=== PATIENT | male | born 1975 | race Caucasian/White ===

== ENCOUNTER 2019-01-30 19:14 | Emergency (ER) | payer MEDICAID, OTHER ==
[~2019-01-30] VITALS: Ht 177.8 cm; Wt 101.7 kg
--- NOTE | 2019-01-30 19:29 | NUR ---
last dose of ibuprofen at 1800
[2019-01-30] MEDS ORDERED: ACETAMINOPHEN 500 MG TABLET ONE (20:28)
[2019-01-30] MEDS ORDERED: ACETAMINOPHEN 500 MG TABLET PO ONE (20:30)
[2019-01-30 20:40] LABS: RAPID INFLUENZA A Negative (Negative); RAPID INFLUENZA B Negative (Negative)
[2019-01-30 22:05] LABS: MICROSCOPIC AUTO
[2019-01-30 22:07] LABS: CULTURE INDICATED? NO
[2019-01-30 22:42] VITALS: BP 110/71
== END 2019-01-30 22:44 | disposition home or self-care (01) ==
LOC: ED 20:34
DX: B34.9 Viral infection, unspecified (principal)
CPT/HCPCS: 81001; 87081; 87400; 87880; 99283